=== PATIENT | male | born 1925 | race Caucasian/White ===

== ENCOUNTER 2016-06-22 19:23 | Inpatient (IN) | payer OTHER ==
[~2016-06-22] VITALS: Ht 170.2 cm; Wt 77.7 kg
[~2016-06-22 19:23] MED LIST: AKWA TEARS OIN3.5 GM LEFT EYE; AQUAPHOR W-NAT50 GM TP; ASPIRIN325 MG PO; CIPRO500 MG PO; COUMADIN,JANTOVE4 MG PO; COUMADIN5 MG PO; COZAAR25 MG PO; DOCUSATE SODIU100 MG PO; DOXAZOSIN MESYLA8 MG PO; EX-LAX15 MG PO; FINASTERIDE5 MG PO; FUROSEMIDE40 MG PO; FUROSEMIDE80 MG PO; HYDROCODON-ACE1 EAC7 PO; HYTRIN10 MG PO; HYTRIN5 MG PO; K-DUR20 MEQ PO; KLOR-CON 1010 ME1 PO; LASIX80 MG PO; LEVAQUIN500 MG PO; LITE COAT ASPI325 M1 PO; LOSARTAN POTASS25 MG PO; MEN'S ONE DAIL1 EACH PO; NEXIUM40 MG PO; NORCO 5/3251 TABLET PO; PHENAZOPYRIDIN200 MG PO; PILOCARPINE HCL15 M1 BOTH EYES; PILOCARPINE HCL15 M1 RIGHT EYE; POTASSIUM CHLO10 ME3 PO; POTASSIUM CHLO10 ME4 PO; POTASSIUM CHLO20 ME1 PO; PRINIVIL10 MG PO; PROSCAR5 MG PO; PROTONIX40 MG PO; PYRIDIUM100 MG PO; PYRIDIUM200 MG PO; SENNA PLUS TAB1 EACH PO; TYLENOL325 MG PR; WARFARIN SODIUM5 MG PO
[2016-06-22 20:30] LABS: HEMATOCRIT 45.7 % (38.0-50.0); MCHC 30.4 G/DL (30.0-36.0); MCV 82.3 FL (86-99); MEAN PLAT.VOLUME 11.1 uM^3 (9.0-12.4); PLATELET COUNT 207 K/uL (156-360); RBC DIS.WIDTH-CV 20.1 % (11.8-14.6); RBC DIS.WIDTH-SD 58.3 % (39-53); RED BLOOD COUNT 5.55 M/uL (4.00-5.50); WHITE BLOOD COUNT 19.6 K/uL (4.1-10.2)
[2016-06-22 20:39] LABS: CHLORIDE 102 mEq/L (99-109); POTASSIUM 3.6 mEq/L (3.7-5.4)
[2016-06-22 20:40] LABS: SODIUM 141 mEq/L (136-147)
[2016-06-22 20:42] LABS: GLUCOSE 128 mg/dL (70-99); PROTHROMBIN TIME 71.9 (9.2-11.2); PTT 46.8 (25-32)
[2016-06-22 20:43] LABS: ANION GAP 14 MEQ/L (2-14)
[2016-06-22 20:44] LABS: TOTAL BILIRUBIN 1.5 mg/dL (0.0-1.0)
[2016-06-22 20:45] LABS: ALKALINE PHOSPHATASE 80 IU/L (3-129)
[2016-06-22 20:46] LABS: GFR ESTIMATE (CALCULATED) 24 mL/min/
[2016-06-22 20:47] LABS: UREA NITROGEN (BUN) 72 mg/dL (9-23)
[2016-06-22 20:49] LABS: CREATINE KINASE 330 IU/L (1-294); LIPASE 3 U/L (1.0-51.0)
[2016-06-22 20:50] LABS: TROP-I INTERPRETATION NEGATIVE
[2016-06-22 21:21] LABS: INTER. NORMALIZED RATIO 6.7
[2016-06-22 21:21] LABS: ADD MIUA? YES; BILIRUBIN NEGATIVE; BLOOD LARGE; COLOR AMBER ((YELLOW)); GLUCOSE (STRIP) NEGATIVE; KETONES NEGATIVE; LEUKOCYTES LARGE; NITRITE NEGATIVE; PROTEIN (STRIP) 100; SPECIFIC GRAVITY 1.011 (1.000-1.030); UROBILINOGEN 0.2 MG/DL (0.2-1.0)
[2016-06-22] MEDS ORDERED: WARFARIN SODIUM5 MG PO (21:31)
[2016-06-22] MEDS ORDERED: TERAZOSIN HCL10 MG PO (21:31)
[2016-06-22] MEDS ORDERED: SENNA PLUS TAB1 EACH PO (21:32)
[2016-06-22] MEDS ORDERED: FUROSEMIDE80 MG PO (21:32)
[2016-06-22 21:39] LABS: BACTERIA 3+ /HPF; CASTS NONE SEEN /LPF; CRYSTALS NONE SEEN; EPITHELIAL CELLS NONE SEEN /HPF; MUCUS NONE SEEN /LPF; RED BLOOD CELLS TNTC /HPF (0-5); UCUL ADDED? YES; WHITE BLOOD CELLS TNTC /HPF (0-5)
[2016-06-22 21:49] LABS: EOSINOPHIL (%) 0 % (0-5); IMMATURE GRANULOCYTE (%) 1.5 % (0.0-0.7); IMMATURE GRANULOCYTE COUNT 0.3 K/uL; INSTRUMENT ABS NEUTROPHIL CT 17.7 K/uL; LYMPHOCYTE COUNT 0.4 K/uL (1.0-2.8); MONOCYTE (%) 5.8 % (3-12); MONOCYTE COUNT 1.1 K/uL (0-0.8); NEUTROPHIL (%) 90.7 % (45-76); NEUTROPHIL COUNT 17.7 K/uL (1.8-6.4)
[2016-06-23 00:23] VITALS: BP 123/59
[2016-06-23 06:46] VITALS: BP 100/51
[2016-06-23 06:51] LABS: ANION GAP 10 MEQ/L (2-14); CHLORIDE 103 MEQ/L (99-109); GFR ESTIMATE (CALCULATED) 29 mL/min/; GLUCOSE 109 mg/dL (70-99); POTASSIUM 3.8 MEQ/L (3.7-5.4); SAMPLE HEMOLYSIS CHECK 0; SAMPLE ICTERIC CHECK 0; SAMPLE LIPEMIA CHECK 0; SODIUM 139 MEQ/L (136-147); UREA NITROGEN (BUN) 69 mg/dL (9-23)
[2016-06-23 07:22] LABS: EOSINOPHIL (%) 0 % (0-5); HEMATOCRIT 37.2 % (38.0-50.0); IMMATURE GRANULOCYTE COUNT 0.2 K/uL; INSTRUMENT ABS NEUTROPHIL CT 15.3 K/uL; LYMPHOCYTE COUNT 0.6 K/uL (1.0-2.8); MCH 25.1 PG (29.0-34.0); MCHC 30.6 G/DL (30.0-36.0); MCV 81.8 FL (86-99); MEAN PLAT.VOLUME 11.7 uM^3 (9.0-12.4); MONOCYTE (%) 6.2 % (3-12); MONOCYTE COUNT 1.1 K/uL (0-0.8); NEUTROPHIL (%) 89.2 % (45-76); NEUTROPHIL COUNT 15.3 K/uL (1.8-6.4); PLATELET COUNT 183 K/uL (156-360); RBC DIS.WIDTH-CV 19.7 % (11.8-14.6); RBC DIS.WIDTH-SD 57.8 % (39-53); RED BLOOD COUNT 4.55 M/uL (4.00-5.50); WHITE BLOOD COUNT 17.2 K/uL (4.1-10.2)
[2016-06-23 07:29] LABS: INTER. NORMALIZED RATIO 7.5; PROTHROMBIN TIME 80.9 (9.2-11.2)
[2016-06-23 09:10] VITALS: BP 112/55
[2016-06-23 15:15] VITALS: BP 104/51
[2016-06-23 22:29] VITALS: BP 114/53
[2016-06-24 06:30] LABS: EOSINOPHIL (%) 0.2 % (0-5); HEMATOCRIT 36.8 % (38.0-50.0); IMMATURE GRANULOCYTE (%) 0.8 % (0.0-0.7); IMMATURE GRANULOCYTE COUNT 0.1 K/uL; INSTRUMENT ABS NEUTROPHIL CT 14.4 K/uL; MCH 24.6 PG (29.0-34.0); MCHC 30.7 G/DL (30.0-36.0); MCV 80.2 FL (86-99); MEAN PLAT.VOLUME 11.9 uM^3 (9.0-12.4); MONOCYTE (%) 7.3 % (3-12); MONOCYTE COUNT 1.2 K/uL (0-0.8); NEUTROPHIL (%) 85.8 % (45-76); NEUTROPHIL COUNT 14.4 K/uL (1.8-6.4); PLATELET COUNT 158 K/uL (156-360); RBC DIS.WIDTH-CV 19.1 % (11.8-14.6); RBC DIS.WIDTH-SD 55.7 % (39-53); RED BLOOD COUNT 4.59 M/uL (4.00-5.50); WHITE BLOOD COUNT 16.8 K/uL (4.1-10.2)
[2016-06-24 06:42] LABS: PROTHROMBIN TIME 48.8 (9.2-11.2)
[2016-06-24 06:43] LABS: INTER. NORMALIZED RATIO 4.6
[2016-06-24 07:14] LABS: ANION GAP 14 MEQ/L (2-14); CHLORIDE 103 MEQ/L (99-109); GFR ESTIMATE (CALCULATED) 34 mL/min/; GLUCOSE 109 mg/dL (70-99); POTASSIUM 4.1 MEQ/L (3.7-5.4); SAMPLE HEMOLYSIS CHECK 0; SAMPLE ICTERIC CHECK 0; SAMPLE LIPEMIA CHECK 0; SODIUM 140 MEQ/L (136-147); UREA NITROGEN (BUN) 73 mg/dL (9-23)
[2016-06-24 07:40] VITALS: BP 100/56
[2016-06-24 16:48] VITALS: BP 138/74
[2016-06-24 23:21] VITALS: BP 119/53
[2016-06-25 07:21] LABS: EOSINOPHIL (%) 0.7 % (0-5); EOSINOPHIL COUNT 0.1 K/uL (0-0.3); IMMATURE GRANULOCYTE (%) 0.5 % (0.0-0.7); IMMATURE GRANULOCYTE COUNT 0.1 K/uL; INSTRUMENT ABS NEUTROPHIL CT 12.4 K/uL; LYMPHOCYTE COUNT 1.2 K/uL (1.0-2.8); MCH 24.6 PG (29.0-34.0); MCHC 30.6 G/DL (30.0-36.0); MCV 80.4 FL (86-99); MEAN PLAT.VOLUME 11.3 uM^3 (9.0-12.4); MONOCYTE (%) 7.4 % (3-12); MONOCYTE COUNT 1.1 K/uL (0-0.8); NEUTROPHIL (%) 83.3 % (45-76); NEUTROPHIL COUNT 12.4 K/uL (1.8-6.4); PLATELET COUNT 202 K/uL (156-360); RBC DIS.WIDTH-CV 19.2 % (11.8-14.6); RBC DIS.WIDTH-SD 55.6 % (39-53); RED BLOOD COUNT 4.48 M/uL (4.00-5.50); WHITE BLOOD COUNT 14.9 K/uL (4.1-10.2)
[2016-06-25 07:28] LABS: INTER. NORMALIZED RATIO 4.2; PROTHROMBIN TIME 44.7 (9.2-11.2)
[2016-06-25 07:29] VITALS: BP 106/57
[2016-06-25 07:43] LABS: ANION GAP 11 MEQ/L (2-14); CHLORIDE 101 MEQ/L (99-109); GFR ESTIMATE (CALCULATED) 34 mL/min/; GLUCOSE 111 mg/dL (70-99); POTASSIUM 3.4 MEQ/L (3.7-5.4); SAMPLE HEMOLYSIS CHECK 0; SAMPLE ICTERIC CHECK 0; SAMPLE LIPEMIA CHECK 0; SODIUM 137 MEQ/L (136-147); UREA NITROGEN (BUN) 72 mg/dL (9-23)
[2016-06-25 18:22] VITALS: BP 143/55
[2016-06-25 23:01] VITALS: BP 95/54
[2016-06-26 07:07] LABS: INTER. NORMALIZED RATIO 2.8; PROTHROMBIN TIME 29.4 (9.2-11.2)
[2016-06-26 07:22] LABS: ANION GAP 11 MEQ/L (2-14); CHLORIDE 102 MEQ/L (99-109); GFR ESTIMATE (CALCULATED) 41 mL/min/; GLUCOSE 102 mg/dL (70-99); POTASSIUM 3.3 MEQ/L (3.7-5.4); SAMPLE HEMOLYSIS CHECK 0; SAMPLE ICTERIC CHECK 0; SAMPLE LIPEMIA CHECK 0; SODIUM 138 MEQ/L (136-147); UREA NITROGEN (BUN) 65 mg/dL (9-23)
[2016-06-26 07:39] VITALS: BP 122/57
[2016-06-26 16:42] VITALS: BP 120/60
[2016-06-26 21:00] VITALS: BP 116/55
[2016-06-26 22:32] VITALS: BP 124/58
[2016-06-27 07:33] LABS: ANION GAP 10 MEQ/L (2-14); CHLORIDE 103 MEQ/L (99-109); GFR ESTIMATE (CALCULATED) 47 mL/min/; GLUCOSE 103 mg/dL (70-99); POTASSIUM 3.6 MEQ/L (3.7-5.4); SAMPLE HEMOLYSIS CHECK 0; SAMPLE ICTERIC CHECK 0; SAMPLE LIPEMIA CHECK 0; SODIUM 138 MEQ/L (136-147); UREA NITROGEN (BUN) 58 mg/dL (9-23)
[2016-06-27 07:47] LABS: INTER. NORMALIZED RATIO 2.1; PROTHROMBIN TIME 21.6 (9.2-11.2)
[2016-06-27 08:07] VITALS: BP 132/61
[2016-06-27] MEDS ORDERED: CEFTIN500 MG PO (12:26)
[2016-06-27 16:02] VITALS: BP 144/67
== END 2016-06-27 17:47 | DRG 683 ==
LOC: EME → EDBD 19:23 → 5EAST 22:16 → EDOF 22:16 → 5EAST 06-23
PROVIDERS: Emergency Medicine; Family Medicine
DX: N17.9 Acute kidney failure, unspecified (principal); T83.511A Infection and inflammatory reaction due to indwelling urethral catheter, initial encounter; N39.0 Urinary tract infection, site not specified; B96.20 Unspecified Escherichia coli [E. coli] as the cause of diseases classified elsewhere; B96.1 Klebsiella pneumoniae [K. pneumoniae] as the cause of diseases classified elsewhere; I50.22 Chronic systolic (congestive) heart failure; R78.81 Bacteremia; I87.2 Venous insufficiency (chronic) (peripheral); L97.921 Non-pressure chronic ulcer of unspecified part of left lower leg limited to breakdown of skin; R55 Syncope and collapse; R10.9 Unspecified abdominal pain; E87.6 Hypokalemia; R79.1 Abnormal coagulation profile; I48.2 Chronic atrial fibrillation; R60.0 Localized edema; I89.0 Lymphedema, not elsewhere classified; I87.8 Other specified disorders of veins; G62.9 Polyneuropathy, unspecified; I25.10 Atherosclerotic heart disease of native coronary artery without angina pectoris; E78.5 Hyperlipidemia, unspecified; K21.9 Gastro-esophageal reflux disease without esophagitis; N40.1 Benign prostatic hyperplasia with lower urinary tract symptoms; R33.9 Retention of urine, unspecified; K59.03 Drug induced constipation; T40.2X5A Adverse effect of other opioids, initial encounter; M16.11 Unilateral primary osteoarthritis, right hip; E66.9 Obesity, unspecified; Z68.26 Body mass index [BMI] 26.0-26.9, adult; I25.2 Old myocardial infarction; Z95.0 Presence of cardiac pacemaker; Z95.5 Presence of coronary angioplasty implant and graft; Z79.01 Long term (current) use of anticoagulants; Z88.0 Allergy status to penicillin; Z88.5 Allergy status to narcotic agent; Z87.891 Personal history of nicotine dependence
CPT/HCPCS: 70450; 71010; 74022; 80048; 80053; 81003; 82550; 83605; 83690; 84484; 85025; 85610; 85730; 87040; 87077; 87086; 87186; 87801; 94799; 99281; 99285; J0696; J1940; J1956; J3480; J7030; J7050

== ENCOUNTER 2016-08-05 19:47 | Inpatient (IN) | payer OTHER ==
[~2016-08-05] VITALS: Ht 170.2 cm; Wt 65.3 kg
[~2016-08-05 19:47] MED LIST changes: +CEFTIN500 MG PO; +TERAZOSIN HCL10 MG PO
[2016-08-05 20:41] LABS: HEMATOCRIT 31.9 % (38.0-50.0); MCH 25.8 PG (29.0-34.0); MCHC 31.3 G/DL (30.0-36.0); MCV 82.2 FL (86-99); MEAN PLAT.VOLUME 10.2 uM^3 (9.0-12.4); PLATELET COUNT 283 K/uL (156-360); RBC DIS.WIDTH-CV 22.7 % (11.8-14.6); RBC DIS.WIDTH-SD 67.4 % (39-53); RED BLOOD COUNT 3.88 M/uL (4.00-5.50); WHITE BLOOD COUNT 7.9 K/uL (4.1-10.2)
[2016-08-05 20:51] LABS: PROTHROMBIN TIME 48.1 (9.2-11.2)
[2016-08-05 20:58] LABS: CHLORIDE 102 mEq/L (99-109); POTASSIUM 4.4 mEq/L (3.7-5.4); SODIUM 135 mEq/L (136-147)
[2016-08-05 21:01] LABS: GLUCOSE 102 mg/dL (70-99); INTER. NORMALIZED RATIO 4.5
[2016-08-05 21:02] LABS: ANION GAP 11 MEQ/L (2-14)
[2016-08-05 21:03] LABS: TOTAL BILIRUBIN 0.4 mg/dL (0.0-1.0)
[2016-08-05 21:04] LABS: ALKALINE PHOSPHATASE 77 IU/L (3-129); GFR ESTIMATE (CALCULATED) 32 mL/min/
[2016-08-05 21:05] LABS: UREA NITROGEN (BUN) 36 mg/dL (9-23)
[2016-08-05 21:08] LABS: LIPASE 25 U/L (1.0-51.0)
[2016-08-05 22:50] LABS: COLOR DK YELLOW ((YELLOW))
[2016-08-05 22:51] LABS: GLUCOSE (STRIP) NEGATIVE; KETONES NEGATIVE; LEUKOCYTES MODERATE; PH, URINE 6.5 (5-8); PROTEIN (STRIP) 300; SPECIFIC GRAVITY 1.015 (1.000-1.030); UROBILINOGEN 0.2 MG/DL (0.2-1.0)
[2016-08-05 22:52] LABS: ADD MIUA? YES; BLOOD LARGE
[2016-08-05 22:56] LABS: BACTERIA 1+ /HPF; EPITHELIAL CELLS NONE SEEN /HPF; MUCUS NONE SEEN /LPF; RED BLOOD CELLS TNTC /HPF (0-5); UCUL ADDED? YES; WHITE BLOOD CELLS TNTC /HPF (0-5)
[2016-08-05] MEDS ORDERED: BACTRIM,SEPT1 TABLET PO (23:26)
[2016-08-05] MEDS ORDERED: ACIDOPHILUS1 EAC5 PO (23:28)
[2016-08-05] MEDS ORDERED: CEFTIN500 MG PO (23:39)
[2016-08-06 00:59] VITALS: BP 152/65
[2016-08-06 03:47] LABS: METH RESISTANT S AUREUS PCR POSITIVE (NEGATIVE)
[2016-08-06 03:51] LABS: PROBE CHECK PASS
[2016-08-06 04:30] VITALS: BP 135/68
[2016-08-06 07:20] LABS: HEMATOCRIT 29.6 % (38.0-50.0); MCH 25.4 PG (29.0-34.0); MCHC 30.1 G/DL (30.0-36.0); MCV 84.3 FL (86-99); MEAN PLAT.VOLUME 10.2 uM^3 (9.0-12.4); PLATELET COUNT 260 K/uL (156-360); RBC DIS.WIDTH-CV 22.5 % (11.8-14.6); RED BLOOD COUNT 3.51 M/uL (4.00-5.50)
[2016-08-06 07:34] LABS: BASOPHIL COUNT 0.1 K/uL (0-0.1); EOSINOPHIL (%) 4.9 % (0-5); EOSINOPHIL COUNT 0.3 K/uL (0-0.3); IMMATURE GRANULOCYTE (%) 0.1 % (0.0-0.7); INSTRUMENT ABS NEUTROPHIL CT 3.8 K/uL; LYMPHOCYTE COUNT 2.2 K/uL (1.0-2.8); MONOCYTE COUNT 0.6 K/uL (0-0.8); NEUTROPHIL (%) 54.5 % (45-76); NEUTROPHIL COUNT 3.8 K/uL (1.8-6.4)
[2016-08-06 07:43] LABS: ANION GAP 7 MEQ/L (2-14); CHLORIDE 104 MEQ/L (99-109); GFR ESTIMATE (CALCULATED) 36 mL/min/; GLUCOSE 81 mg/dL (70-99); POTASSIUM 4.1 MEQ/L (3.7-5.4); SAMPLE HEMOLYSIS CHECK 0; SAMPLE ICTERIC CHECK 0; SAMPLE LIPEMIA CHECK 0; SODIUM 138 MEQ/L (136-147); UREA NITROGEN (BUN) 32 mg/dL (9-23)
[2016-08-06 09:00] VITALS: BP 109/57
[2016-08-06 11:17] VITALS: BP 106/60
[2016-08-06 15:04] VITALS: BP 125/56
[2016-08-06 19:37] LABS: INTER. NORMALIZED RATIO 3.6; PROTHROMBIN TIME 37.8 (9.2-11.2)
[2016-08-06 21:00] VITALS: BP 108/53
[2016-08-07 00:51] VITALS: BP 156/70
[2016-08-07 04:25] VITALS: BP 139/63
[2016-08-07 07:54] LABS: ANION GAP 7 MEQ/L (2-14); CHLORIDE 104 MEQ/L (99-109); GFR ESTIMATE (CALCULATED) 38 mL/min/; GLUCOSE 89 mg/dL (70-99); POTASSIUM 3.7 MEQ/L (3.7-5.4); SAMPLE HEMOLYSIS CHECK 0; SAMPLE ICTERIC CHECK 0; SAMPLE LIPEMIA CHECK 0; SODIUM 136 MEQ/L (136-147); UREA NITROGEN (BUN) 32 mg/dL (9-23)
[2016-08-07 10:43] VITALS: BP 116/64
[2016-08-07 11:12] VITALS: BP 119/56
[2016-08-07 16:00] VITALS: BP 169/79
[2016-08-07 18:26] LABS: INTER. NORMALIZED RATIO 2.7; PROTHROMBIN TIME 28.5 (9.2-11.2)
[2016-08-07 19:00] VITALS: BP 130/60
[2016-08-08 01:11] VITALS: BP 161/71
[2016-08-08 04:00] VITALS: BP 155/70
[2016-08-08 05:32] LABS: IMM.RETIC FRACTION 15.7 % (3-19); RETIC HGB EQUIVALENT 35.9 (28-36); RETICULOCYTE COUNT 1.4 % (0.5-1.8)
[2016-08-08 05:46] LABS: INTER. NORMALIZED RATIO 2.5; PROTHROMBIN TIME 26.6 (9.2-11.2)
[2016-08-08 06:00] LABS: ANION GAP 7 MEQ/L (2-14); CHLORIDE 108 MEQ/L (99-109); GFR ESTIMATE (CALCULATED) 43 mL/min/; GLUCOSE 89 mg/dL (70-99); IRON 49 MCG/DL (35-150); SAMPLE HEMOLYSIS CHECK 0; SAMPLE ICTERIC CHECK 0; SAMPLE LIPEMIA CHECK 0; SODIUM 139 MEQ/L (136-147); UREA NITROGEN (BUN) 34 mg/dL (9-23)
[2016-08-08 07:56] LABS: FERRITIN 178 NG/ML (22-322)
[2016-08-08] MEDS ORDERED: BACTROBAN OINTM22 GM TP (09:30)
[2016-08-08] MEDS ORDERED: COUMADIN1 MG PO (10:07)
[2016-08-08] MEDS ORDERED: IRON325 MG PO (12:02)
== END 2016-08-08 12:50 | DRG 683 ==
LOC: EME → EDBD 19:47 → EME 19:47 → 5WEST 23:01 → EDOF 23:01 → 5WEST 08-06 00:33
PROVIDERS: Emergency Medicine; Internal Medicine; Internal Medicine Nephrology; Nurse Practitioner Adult Health
DX: N17.9 Acute kidney failure, unspecified (principal); I50.22 Chronic systolic (congestive) heart failure; N13.8 Other obstructive and reflux uropathy; G62.9 Polyneuropathy, unspecified; I48.0 Paroxysmal atrial fibrillation; G89.29 Other chronic pain; M25.551 Pain in right hip; K40.90 Unilateral inguinal hernia, without obstruction or gangrene, not specified as recurrent; I87.8 Other specified disorders of veins; D64.9 Anemia, unspecified; N13.30 Unspecified hydronephrosis; K21.9 Gastro-esophageal reflux disease without esophagitis; N18.3 Chronic kidney disease, stage 3 (moderate); I12.9 Hypertensive chronic kidney disease with stage 1 through stage 4 chronic kidney disease, or unspecified chronic kidney disease; I25.10 Atherosclerotic heart disease of native coronary artery without angina pectoris; I87.2 Venous insufficiency (chronic) (peripheral); E78.5 Hyperlipidemia, unspecified; N40.1 Benign prostatic hyperplasia with lower urinary tract symptoms; N32.89 Other specified disorders of bladder; K57.30 Diverticulosis of large intestine without perforation or abscess without bleeding; I89.0 Lymphedema, not elsewhere classified; N32.0 Bladder-neck obstruction; K59.00 Constipation, unspecified; Z95.5 Presence of coronary angioplasty implant and graft; Z87.440 Personal history of urinary (tract) infections; Z95.0 Presence of cardiac pacemaker; Z87.891 Personal history of nicotine dependence; Z88.3 Allergy status to other anti-infective agents
CPT/HCPCS: 74176; 80048; 80053; 80069; 81003; 82306; 82607; 82728; 82746; 83540; 83605; 83690; 84466; 85025; 85027; 85045; 85610; 87040; 87086; 87641; 93005; 99281; 99285; G0378; J0692; J7030; J7050

== ENCOUNTER 2016-12-11 20:34 | Emergency (ER) | payer OTHER ==
[~2016-12-11] VITALS: Ht 170.2 cm; Wt 85.2 kg
[~2016-12-11 20:34] MED LIST changes: +ACIDOPHILUS1 EAC5 PO; +BACTRIM,SEPT1 TABLET PO; +BACTROBAN OINTM22 GM TP; +COUMADIN1 MG PO; +IRON325 MG PO
[2016-12-11 21:43] LABS: BASOPHIL COUNT 0.1 K/uL (0-0.1); EOSINOPHIL COUNT 0.2 K/uL (0-0.3); HEMATOCRIT 38.7 % (38.0-50.0); IMMATURE GRANULOCYTE (%) 0.3 % (0.0-0.7); INSTRUMENT ABS NEUTROPHIL CT 4.8 K/uL; LYMPHOCYTE COUNT 1.1 K/uL (1.0-2.8); MCH 29.5 PG (29.0-34.0); MCHC 30.2 G/DL (30.0-36.0); MCV 97.5 FL (86-99); MEAN PLAT.VOLUME 10.9 uM^3 (9.0-12.4); MONOCYTE COUNT 0.5 K/uL (0-0.8); NEUTROPHIL (%) 70.7 % (45-76); NEUTROPHIL COUNT 4.8 K/uL (1.8-6.4); PLATELET COUNT 183 K/uL (156-360); RBC DIS.WIDTH-CV 16.5 % (11.8-14.6); RBC DIS.WIDTH-SD 59.1 % (39-53); RED BLOOD COUNT 3.97 M/uL (4.00-5.50); WHITE BLOOD COUNT 6.7 K/uL (4.1-10.2)
[2016-12-11 21:49] LABS: INTER. NORMALIZED RATIO 3.6
[2016-12-11 21:51] LABS: CHLORIDE 104 mEq/L (99-109); POTASSIUM 4.2 mEq/L (3.7-5.4); SODIUM 140 mEq/L (136-147)
[2016-12-11 21:52] LABS: PTT 42.6 SEC (25-37)
[2016-12-11 21:53] LABS: GLUCOSE 106 mg/dL (70-99)
[2016-12-11 21:54] LABS: ANION GAP 8 MEQ/L (2-14)
[2016-12-11 21:55] LABS: TOTAL BILIRUBIN 0.8 mg/dL (0.0-1.0)
[2016-12-11 21:57] LABS: ALKALINE PHOSPHATASE 79 IU/L (3-129); GFR ESTIMATE (CALCULATED) 55 mL/min/
[2016-12-11 21:58] LABS: UREA NITROGEN (BUN) 29 mg/dL (9-23)
[2016-12-12 01:53] VITALS: BP 158/86
== END 2016-12-12 02:00 ==
LOC: EME → EDBD 20:34 → EME 20:34
PROVIDERS: Emergency Medicine
DX: S00.03XA Contusion of scalp, initial encounter (principal); W01.0XXA Fall on same level from slipping, tripping and stumbling without subsequent striking against object, initial encounter; Y92.121 Bathroom in nursing home as the place of occurrence of the external cause; I48.91 Unspecified atrial fibrillation; Z79.01 Long term (current) use of anticoagulants; I11.0 Hypertensive heart disease with heart failure; I50.9 Heart failure, unspecified; I25.10 Atherosclerotic heart disease of native coronary artery without angina pectoris; I25.2 Old myocardial infarction; Z95.5 Presence of coronary angioplasty implant and graft; N40.0 Benign prostatic hyperplasia without lower urinary tract symptoms; Z87.891 Personal history of nicotine dependence; Z95.0 Presence of cardiac pacemaker; Z88.0 Allergy status to penicillin
CPT/HCPCS: 70450; 80053; 85025; 85610; 85730; 99281; 99285